=== PATIENT | male | born 1950 | race Caucasian/White ===

== ENCOUNTER → 2018-01-07 10:00 | Outpatient (CLI) | payer MEDICARE, OTHER | END | disposition home or self-care (01) | LOC: D.RAD 10:00 | DX: S39.012A Strain of muscle, fascia and tendon of lower back, initial encounter (principal); X58.XXXA Exposure to other specified factors, initial encounter ==

== ENCOUNTER → 2018-06-01 09:12 | Outpatient (CLI) | payer MEDICARE, OTHER | END | disposition home or self-care (01) | LOC: D.US 09:12 | PROVIDERS: ATTEND Family Medicine | DX: R60.0 Localized edema (principal) ==